=== PATIENT | male | born 1955 | race Two or more races ===

== ENCOUNTER 2023-01-24 15:33 | Inpatient (IN) | payer OTHER ==
[~2023-01-24] VITALS: Ht 188 cm; Wt 82.0 kg
[2023-01-24 15:45] VITALS: PULSE 155; RESP 15; O2SAT 93
[2023-01-24] MEDS ORDERED: dilTIAZem 125mg/125ml BAG KIT 125 ML IV ONE (17:00)
[2023-01-24] MEDS ORDERED: dilTIAZem 25 MG/5 ML VIAL IV ONE (17:00)
[2023-01-24 17:05] LABS: Basophils # (auto) 0.1 10 ^3/uL (0-0.2); Basophils % (auto) 0.5 % (0.0-2.0); Eosinophils # (auto) 0.1 10 ^3/uL (0-0.8); Eosinophils % (auto) 0.7 % (0.0-7.0); Hematocrit 38.1 % (41.0-53.0); Lymphocytes # (auto) 2.2 10 ^3/uL (0.4-5.4); Lymphocytes % (auto) 15.9 % (10.0-50.0); Mean Corpuscular Hgb Conc. 31.6 g/dL (32.0-36.0); Mean Corpuscular Volume 79.3 fL (80.0-100.0); Monocytes # (auto) 1.1 10 ^3/uL (0-1.3); Monocytes % (auto) 7.8 % (0.0-12.0); Neutrophils # (auto) 10.5 10 ^3/uL (1.6-8.6); Neutrophils % (auto) 75.1 % (37.0-80.0); Nucleated Red Blood Cells % 0.3 %; Red Blood Cells 4.81 10^6/uL (4.5-5.90); Red Cell Distribution Width 18.8 % (11.8-14.3)
[2023-01-24] MEDS ORDERED: cefTRIAXone 1GM/50ML D5W 50 ML IV ONE (17:15)
[2023-01-24] MEDS ORDERED: AZITHROMYCIN 500MG/ 250ML 250 ML IV ONE (17:15)
[2023-01-24 17:26] LABS: Alanine Aminotransferase 167 U/L (7-40); Albumin 3.3 g/dL (3.2-4.8); Alkaline Phosphatase 99 U/L (46-116); Anion Gap 10 (5-15); Aspartate Aminotransferase 55 U/L (13-40); BUN/Creatinine Ratio 22.5 (10.0-20.0); Blood Urea Nitrogen 39 mg/dL (9-23); Calcium 8.1 mg/dL (8.7-10.4); Carbon Dioxide 29 mmol/L (20-30); Chloride 97 mmol/L (98-107); Glucose 106 mg/dL (74-106); Magnesium 2.1 mg/dL (1.6-2.6); Potassium 4.2 mmol/L (3.5-5.1); Sodium 136 mmol/L (136-145)
[2023-01-24 17:27] LABS: Bilirubin, Total 1.4 mg/dL (0.2-1.0); Total Protein 6.7 g/dL (5.7-8.2)
[2023-01-24] MEDS ORDERED: SODIUM CHLORIDE 0.9% 1,000 ML IV ONE ×2 (17:45)
[2023-01-24 18:08] LABS: INR 1.3 (0.9-1.15); Partial Thromboplastin Time 26.5 SEC (24.5-34.5); Prothrombin Time 13.4 sec (9.3-11.8)
[2023-01-24 19:30] VITALS: PULSE 156; RESP 20; O2SAT 90
[2023-01-24] MEDS ORDERED: LORazepam 2MG/ML-1ML VIAL IV ONE (20:00)
[2023-01-24] MEDS ORDERED: diphenhdrAMINE HCL 50 MG/1 ML VL IV ONE (20:00)
[2023-01-24] MEDS ORDERED: ONDANSETRON HCL 4 MG/2 ML VIAL IV PRN (21:00)
[2023-01-24] MEDS ORDERED: DIGOXIN (250MCG/ML) 2 ML AMPULE IV ONE (21:00)
[2023-01-24] MEDS ORDERED: IBUPROFEN 600 MG TAB PO PRN (21:00)
[2023-01-24] MEDS ORDERED: DOCUSATE SOD 100 MG CAP PO PRN (21:00)
[2023-01-24] MEDS ORDERED: METOPROLOL TARTRATE 1MG/1ML-5ML VIAL IV ONE (21:16)
[2023-01-24] MEDS: METOPROLOL TARTRATE 1MG/1ML-5ML VIAL IV SCH ×4 (21:23→21:38)
[2023-01-24] MEDS: SODIUM CHLORIDE 0.9% 1,000 ML IV SCH (21:59)
[2023-01-24] MEDS ORDERED: APIXABAN 5 MG TAB PO SCH (22:00)
[2023-01-24] MEDS ORDERED: HEPARIN SODIUM (PORCINE) 5000 UNITS/ML 1ML VIAL SC SCH (22:00)
[2023-01-24] MEDS ORDERED: MORPHINE SULFATE INJ 2 MG/ml SYRG IV PRN (23:45)
[2023-01-24] MEDS ORDERED: NITROGLYCERIN 0.4 MG SL TAB SL PRN (23:45)
[2023-01-25] VITALS (7 sets, daily range): BP systolic 107; BP diastolic 76; PULSE 109–127; RESP 16–20; TEMP 98.6; O2SAT 94–100
[2023-01-25] MEDS ORDERED: ALBUTEROL SULF 2.5 MG/0.5ML(0.5%) NEB SOLN NEB PRN (00:45)
[2023-01-25 02:53] LABS: Lactic Acid w/Reflex 6.9 mmol/L (0.4-2.0)
[2023-01-25] MEDS ORDERED: dilTIAZem 125mg/125ml BAG KIT 125 ML IV SCH (04:00)
[2023-01-25 04:20] LABS: Basophils # (auto) 0 10 ^3/uL (0-0.2); Eosinophils # (auto) 0 10 ^3/uL (0-0.8); Eosinophils % (auto) 0.1 % (0.0-7.0); Lymphocytes # (auto) 1.4 10 ^3/uL (0.4-5.4); Monocytes # (auto) 0.9 10 ^3/uL (0-1.3)
[2023-01-25 04:24] LABS: Basophils % (auto) 0.2 % (0.0-2.0); Hematocrit 32.3 % (41.0-53.0); Lymphocytes % (auto) 9.2 % (10.0-50.0); Mean Corpuscular Hemoglobin 25.8 pg (28.0-32.0); Mean Corpuscular Hgb Conc. 30.9 g/dL (32.0-36.0); Mean Corpuscular Volume 83.4 fL (80.0-100.0); Monocytes % (auto) 6.1 % (0.0-12.0); Neutrophils # (auto) 12.9 10 ^3/uL (1.6-8.6); Neutrophils % (auto) 84.4 % (37.0-80.0); Red Blood Cells 3.87 10^6/uL (4.5-5.90); Red Cell Distribution Width 19.1 % (11.8-14.3); White Blood Cell 15.2 10^3/uL (4.4-10.8)
[2023-01-25 04:46] LABS: Alanine Aminotransferase 105 U/L (7-40); Albumin 2.3 g/dL (3.2-4.8); Alkaline Phosphatase 64 U/L (46-116); Aspartate Aminotransferase 36 U/L (13-40); BUN/Creatinine Ratio 19.4 (10.0-20.0); Calcium 6.4 mg/dL (8.5-10.1); Glucose 76 mg/dL (74-106); Potassium 3.1 mmol/L (3.5-5.1); Sodium 144 mmol/L (136-145); Total Protein 4.8 g/dL (5.7-8.2)
[2023-01-25 04:56] LABS: Anion Gap 17 (5-15); Blood Urea Nitrogen 26 mg/dL (9-23); Carbon Dioxide 17 mmol/L (20-30); Chloride 110 mmol/L (98-107)
[2023-01-25] MEDS ORDERED: VANCOMYCIN PER PHARMACY 0 MG IV SCH (05:00)
[2023-01-25] MEDS ORDERED: LORazepam 2MG/ML-1ML VIAL IV PRN (05:00)
[2023-01-25] MEDS ORDERED: VANCOMYCIN 1GM/200ML 250 ML IV ONE (06:00)
[2023-01-25] MEDS: METOPROLOL TARTRATE 1MG/1ML-5ML VIAL IV SCH ×2 (06:11→06:29)
[2023-01-25] MEDS ORDERED: DIGOXIN (250MCG/ML) 2 ML AMPULE IV ONE ×2 (09:15→23:15)
[2023-01-25] MEDS ORDERED: LIDOCAINE 2% JELLY 11ml (GLYDO) ONE (09:58)
[2023-01-25] MEDS ORDERED: DIGOXIN 0.125 MG TAB PO SCH (10:00)
[2023-01-25] MEDS ORDERED: LIDOCAINE 2% JELLY 11ml (GLYDO) UR ONE (10:30)
[2023-01-25] MEDS: POTASSIUM CHL 20MEQ/100ML 100 ML IV SCH ×3 (10:46→18:04)
[2023-01-25] MEDS: AZITHROMYCIN 500MG/ 250ML 250 ML IV SCH (10:47)
[2023-01-25] MEDS: cefTRIAXone 1GM/50ML D5W 50 ML IV SCH (11:42)
[2023-01-25 12:32] LABS: Basophils # (auto) 0 10 ^3/uL (0-0.2); Basophils % (auto) 0.3 % (0.0-2.0); Eosinophils # (auto) 0.1 10 ^3/uL (0-0.8); Eosinophils % (auto) 0.4 % (0.0-7.0); Hematocrit 35.8 % (41.0-53.0); Hemoglobin 11.2 g/dL (13.5-17.5); Lymphocytes # (auto) 1.9 10 ^3/uL (0.4-5.4); Lymphocytes % (auto) 11.3 % (10.0-50.0); Mean Corpuscular Hemoglobin 25.1 pg (28.0-32.0); Mean Corpuscular Hgb Conc. 31.4 g/dL (32.0-36.0); Monocytes # (auto) 1.4 10 ^3/uL (0-1.3); Monocytes % (auto) 8.5 % (0.0-12.0); Neutrophils # (auto) 13.5 10 ^3/uL (1.6-8.6); Neutrophils % (auto) 79.5 % (37.0-80.0); Nucleated Red Blood Cells % 0.1 %; Red Blood Cells 4.48 10^6/uL (4.5-5.90); Red Cell Distribution Width 19.2 % (11.8-14.3); White Blood Cell 16.9 10^3/uL (4.4-10.8)
[2023-01-25 13:14] LABS: Urine Bacteria NONE SEEN /hpf (None Seen); Urine Blood 3+ /uL (Negative); Urine Clarity HAZY (Clear); Urine Color Yellow (Yellow); Urine Hyaline Cast FEW /lpf (0 - 2); Urine Protein, UAD 1+ (Negative); Urine Specific Gravity 1.015 (1.001-1.035); Urine Urobilinogen Normal (Negative); Urine WBC <1 /hpf (0 - 3); Urine pH 5.5 (5.0-8.0)
[2023-01-25] MEDS ORDERED: POTASSIUM CHL 20MEQ/100ML 100 ML IV ONE (13:30)
[2023-01-25] MEDS: SODIUM CHLORIDE 0.9% 1,000 ML IV SCH (14:59)
[2023-01-25] MEDS: VANCOMYCIN 1GM/200ML 250 ML IV SCH (18:05)
[2023-01-25] MEDS: LORazepam 2MG/ML-1ML VIAL IV PRN (20:26)
[2023-01-25] MEDS ORDERED: MELATONIN 5 MG TAB PO ONE (22:00)
[2023-01-25] MEDS ORDERED: fentaNYL CITRATE 100 MCG/2 ML VL IM ONE (23:15)
[2023-01-25] MEDS ORDERED: ALBUMIN 25% 100 ML IV ONE (23:15)
[2023-01-25] MEDS ORDERED: fentaNYL CITRATE 100 MCG/2 ML VL IV PRN (23:15)
[2023-01-25] MEDS ORDERED: dilTIAZem 25 MG/5 ML VIAL IV ONE (23:15)
[2023-01-25] MEDS ORDERED: METOCLOPRAMIDE HCL 5MG/ml INJ 2ml VIAL IV ONE (23:15)
[2023-01-25] MEDS ORDERED: dilTIAZem 25 MG/5 ML VIAL IV PRN (23:15)
[2023-01-26] MEDS ORDERED: LORazepam 2MG/ML-1ML VIAL IV ONE (00:15)
[2023-01-26 05:30] LABS: Eosinophils # (auto) 0.1 10 ^3/uL (0-0.8); Hemoglobin 11.4 g/dL (13.5-17.5); Lymphocytes # (auto) 1.5 10 ^3/uL (0.4-5.4); Monocytes # (auto) 1.2 10 ^3/uL (0-1.3); White Blood Cell 15.9 10^3/uL (4.4-10.8)
[2023-01-26 05:33] LABS: Basophils # (auto) 0.1 10 ^3/uL (0-0.2); Basophils % (auto) 0.4 % (0.0-2.0); Eosinophils % (auto) 0.9 % (0.0-7.0); Hematocrit 35.7 % (41.0-53.0); Lymphocytes % (auto) 9.7 % (10.0-50.0); Mean Corpuscular Hemoglobin 25.5 pg (28.0-32.0); Mean Corpuscular Hgb Conc. 31.9 g/dL (32.0-36.0); Mean Corpuscular Volume 79.8 fL (80.0-100.0); Monocytes % (auto) 7.3 % (0.0-12.0); Neutrophils % (auto) 81.7 % (37.0-80.0); Red Blood Cells 4.47 10^6/uL (4.5-5.90)
[2023-01-26] MEDS: VANCOMYCIN 1GM/200ML 250 ML IV SCH (05:43)
[2023-01-26 05:48] LABS: Albumin 3.3 g/dL (3.2-4.8); Alkaline Phosphatase 79 U/L (46-116); Anion Gap 10 (5-15); Aspartate Aminotransferase 33 U/L (13-40); Bilirubin, Total 1.7 mg/dL (0.2-1.0); Blood Urea Nitrogen 26 mg/dL (9-23); Calcium 8.3 mg/dL (8.7-10.4); Carbon Dioxide 26 mmol/L (20-30); Chloride 104 mmol/L (98-107); Glucose 87 mg/dL (74-106); Magnesium 1.8 mg/dL (1.6-2.6); Potassium 3.8 mmol/L (3.5-5.1); Sodium 140 mmol/L (136-145); Total Protein 6.4 g/dL (5.7-8.2)
[2023-01-26 06:34] LABS: Alanine Aminotransferase 107 U/L (7-40)
[2023-01-26] MEDS: SODIUM CHLORIDE 0.9% 1,000 ML IV SCH (06:44)
[2023-01-26] MEDS: LORazepam 2MG/ML-1ML VIAL IV PRN (07:42)
[2023-01-26 08:00] VITALS: PULSE 137; RESP 18; O2SAT 97
[2023-01-26] MEDS: cefTRIAXone 1GM/50ML D5W 50 ML IV SCH (09:02)
[2023-01-26] MEDS ORDERED: FUROSEMIDE 20 MG/2 ML VIAL IV ONE (09:30)
[2023-01-26] MEDS ORDERED: MAGNESIUM SULFATE 1GM/100ML 100 ML IV ONE (09:30)
[2023-01-26] MEDS ORDERED: POTASSIUM CHLORIDE 20 MEQ, LIDOCAINE 1% (LOCAL ANESTH.) 2 ML in SODIUM CHL 0.9% 100 ML IV ONE (09:30)
[2023-01-26] MEDS ORDERED: METOPROLOL TARTRATE 1MG/1ML-5ML VIAL IV ONE (09:30)
[2023-01-26] MEDS ORDERED: DIGOXIN (250MCG/ML) 2 ML AMPULE IV SCH (10:00)
[2023-01-26] MEDS ORDERED: METOPROLOL TARTRATE 1MG/1ML-5ML VIAL IV SCH ×2 (12:00)
[2023-01-26 13:22] VITALS: BP 126/100; PULSE 136; RESP 15; TEMP 97; O2SAT 96
[2023-01-26] MEDS: AZITHROMYCIN 500MG/ 250ML 250 ML IV SCH (13:34)
[2023-01-26] MEDS ORDERED: FUROSEMIDE 20 MG/2 ML VIAL IV SCH (18:00)
== END 2023-01-27 13:33 | disposition short-term general hospital (02) | DRG 720 ==
LOC: ER 15:33 → EDBD 15:33 → TELE 23:32
PROVIDERS: ADMIT Nurse Practitioner Family; ATTEND Internal Medicine Geriatric Medicine
DX: A41.9 Sepsis, unspecified organism (principal); I50.23 Acute on chronic systolic (congestive) heart failure; I62.00 Nontraumatic subdural hemorrhage, unspecified; N17.9 Acute kidney failure, unspecified; F03.90 Unspecified dementia, unspecified severity, without behavioral disturbance, psychotic disturbance, mood disturbance, and anxiety; E87.6 Hypokalemia; I08.1 Rheumatic disorders of both mitral and tricuspid valves; I48.91 Unspecified atrial fibrillation; R33.9 Retention of urine, unspecified; Z51.5 Encounter for palliative care; Z86.73 Personal history of transient ischemic attack (TIA), and cerebral infarction without residual deficits
CPT/HCPCS: 36415; 70450; 71045; 74176; 80053; 80162; 81001; 82140; 83605; 83735; 83880; 84443; 84484; 85025; 85379; 85610; 85730; 86850; 86900; 86901; 87040; 93005; 93306; 94640; 96365; 96367; 99291; G0378; J0696; J2001; J3480; P9047